=== PATIENT | male | born 1985 | race Caucasian/White ===

== ENCOUNTER 2020-04-19 14:43 | Emergency (ER) | payer SELFPAY ==
--- NOTE | 2020-04-19 15:27 | RAD REPORT ---
EXAM DESCRIPTION: RAD - Ankle Right 3 View - 04/19/2020 3:15 pm CLINICAL HISTORY: PAIN COMPARISON: No comparisons FINDINGS: Lateral soft tissue swelling without distal fibular fracture identified. Ankle mortise is normal. A very small crescent shaped bone density present adjacent to the medial malleolus. A small b one avulsion is possible. This does not traverse the medial malleolus. No joint effusion seen. No tesfaye nt space narrowing. Medial soft tissue swelling present. IMPRESSION: No significant fracture deformity identified. Medial soft tissue swelling present along with a small crescent shaped bone density adjacent to the m edial malleolus. This could be a small 1- 2 mm sized bony avulsion.
--- NOTE | 2020-04-19 15:50 | ER ---
Nurse's Notes [facility] Name: Lemuel Spicer Age: 34 yrs Sex: Male : 1985 Arrival Date: 04/19/2020 Time: 14:46 Bed 2 Private MD: Diagnosis: Sprain of ankle Presentation: 04/19 14:46 Chief complaint: EMS states: ROLLED R ANKLE WAKEBOARDING. Coronavirus screen: At this bp time, the client does not indicate any symptoms associated with coronavirus-19. Ebola Screen: No symptoms or risks identified at this time. Initial Sepsis Screen: Does the patient meet any 2 criteria? No. Patient's initial sepsis screen is negative. Does the patient have a suspected source of infection? No. Patient's initial sepsis screen is negative. Risk Assessment: Do you want to hurt yourself or someone else? Patient reports no desire to harm self or others. Onset of symptoms is unknown. Care prior to arrival: IV initiated. 18 GA, in the left antecubital area. 14:46 Method Of Arrival: EMS: [facility] bp 14:46 Acuity: ROHIT 3 bp Triage Assessment: 14:48 General: Appears in no apparent distress. uncomfortable, Behavior is calm, cooperative, bp appropriate for age. Pain: Complains of pain in right lateral malleolus and right medial malleolus. EENT: No deficits noted. Neuro: No deficits noted. Cardiovascular: No deficits noted. Respiratory: No deficits noted. GI: No signs and/or symptoms were reported involving the gastrointestinal system. : Derm: No deficits noted. Musculoskeletal: Circulation, motion, and sensation intact. Range of motion: limited in right ankle. Historical: - Allergies: 14:48 No Known Allergies; bp - Home Meds: 14:48 None [Active]; bp - PMHx: 14:48 None; bp - Immunization history:: Adult Immunizations up to date. - Social history:: Smoking status: Patient denies any tobacco usage or history of. Screenin:50 Abuse screen: Denies threats or abuse. Denies injuries from another. Nutritional bp screening: No deficits noted. Tuberculosis screening: No symptoms or risk factors identified. Fall Risk Fall in past 12 months (25 points). Assessment: 14:53 General: SEE TRIAGE NOTE. bp 17:24 Reassessment: PT D/C HOME VIA W/C WITH FAMILY, DX WITH ANKLE SPRAIN. bp Vital Signs: 14:46 BP 118 / 73; Pulse 68; Resp 18; Temp 98; Pulse Ox 96% ; bp 17:24 BP 108 / 67; Pulse 57; Resp 17; Temp 98; Pulse Ox 100% ; bp ED Course: 14:46 Patient arrived in ED. bp 14:47 Triage completed. bp 14:48 [facility] jr[facility] 14:48 Miles Cota MD is Attending Physician. jr8 14:48 Arm band placed on. bp 14:50 Patient has correct armband on for positive identification. Bed in low position. Call bp light in reach. Side rails up X2. 14:50 Maintain EMS IV. Dressing intact. Good blood return noted. Site clean \T\ dry. Gauge \T\ bp site: 18 G LEFT AC. 15:49 Gray Conklin MD is Referral Physician. jr8 16:21 Rigoberto Coley, RN is Primary Nurse. bp 17:24 No provider procedures requiring assistance completed. IV discontinued, intact, bp bleeding controlled, No redness/swelling at site. Pressure dressing applied. Administered Medications: 17:10 Drug: [place] 10 mg-325 mg 1 tabs Route: PO; bp 17:24 Follow up: Response: Medication administered at discharge. bp Outcome: 15:49 Discharge ordered by . jr8 17:25 Discharged to home via wheelchair, with crutches, with family. bp 17:25 Condition: stable 17:25 Discharge instructions given to patient, Instructed on discharge instructions, follow up and referral plans. medication usage, crutch walking, Demonstrated understanding of instructions, follow-up care, medications, crutch walking, Prescriptions given X 1. 17:26 Patient left the ED. bp Signatures: Jag Steele PA PA jr8 Rigoberto Coley, RN RN bp
--- NOTE | 2020-04-19 15:50 | EDPHYS ---
Physician Documentation [facility] Name: Lemuel Spicer Age: 34 yrs Sex: Male : 1985 Arrival Date: 04/19/2020 Time: 14:46 Bed 2 Private MD: ED Physician Miles Cota HPI: 04/19 15:44 This 34 yrs old Male presents to ER via EMS with complaints of Ankle Injury. jr8 15:47 The patient presents with decreased range of motion, pain, swelling, tenderness. The jr8 complaints affect the right ankle. Onset: The symptoms/episode began/occurred acutely, today. Associated signs and symptoms: The patient has no apparent associated signs or symptoms. Modifying factors: The symptoms are alleviated by nothing, the symptoms are aggravated by weight bearing, movement. Severity of symptoms: At their worst the symptoms were moderate, in the emergency department the symptoms are unchanged. The patient has experienced similar episodes in the past, a few times. The patient has not recently seen a physician. Patient stated that he was wake boarding and fell twisting ankle. Swelling with pain since incident . Historical: - Allergies: 14:48 No Known Allergies; bp - Home Meds: 14:48 None [Active]; bp - PMHx: 14:48 None; bp - Immunization history:: Adult Immunizations up to date. - Social history:: Smoking status: Patient denies any tobacco usage or history of. ROS: 15:47 Eyes: Negative for injury, pain, redness, and discharge, ENT: Negative for injury, jr8 pain, and discharge, Neck: Negative for injury, pain, and swelling, Cardiovascular: Negative for chest pain, palpitations, and edema, Respiratory: Negative for shortness of breath, cough, wheezing, and pleuritic chest pain, Abdomen/GI: Negative for abdominal pain, nausea, vomiting, diarrhea, and constipation, Back: Negative for injury and pain, Skin: Negative for injury, rash, and discoloration, Neuro: Negative for headache, weakness, numbness, tingling, and seizure. 15:47 MS/extremity: Positive for decreased range of motion, pain, swelling, tenderness, of the right ankle. Exam: 15:47 Constitutional: This is a well developed, well nourished patient who is awake, alert, jr8 and in no acute distress. Cardiovascular: Regular rate and rhythm with a normal S1 and S2. No gallops, murmurs, or rubs. Normal PMI, no JVD. No pulse deficits. Respiratory: Lungs have equal breath sounds bilaterally, clear to auscultation and percussion. No rales, rhonchi or wheezes noted. No increased work of breathing, no retractions or nasal flaring. Skin: Warm, dry with normal turgor. Normal color with no rashes, no lesions, and no evidence of cellulitis. Neuro: Awake and alert, GCS 15, oriented to person, place, time, and situation. Cranial nerves II-XII grossly intact. Motor strength 5/5 in all extremities. Sensory grossly intact. Cerebellar exam normal. Normal gait. 15:47 Musculoskeletal/extremity: Extremities: grossly normal except: noted in the right ankle and right foot: Patient has two small abrasions to dorsal foot. Moderate swelling present to lateral malleolus with mild bruising. No other trauma noted , ROM: intact in all extremities, full active range of motion, full passive range of motion, limited active range of motion due to pain, limited passive range of motion due to pain, Circulation is intact in all extremities. Sensation intact. Vital Signs: 14:46 BP 118 / 73; Pulse 68; Resp 18; Temp 98; Pulse Ox 96% ; bp 17:24 BP 108 / 67; Pulse 57; Resp 17; Temp 98; Pulse Ox 100% ; bp Procedures: 15:47 Splinting: Splint applied to right ankle using Air Cast, applied by nurse. Examined by jr8 dc, post splint application: neurovascular intact, 2+ distal pulses palpable, brisk capillary refill noted. Crutch training provided to patient and/or family. Return demonstration given. MDM: 14:51 Patient medically screened. jr8 15:47 Data reviewed: vital signs, nurses notes, radiologic studies, plain films, and as a jr8 result, I will discharge patient. Data interpreted: Pulse oximetry: on room air is 96 %. Interpretation: normal. Counseling: I had a detailed discussion with the patient and/or guardian regarding: the historical points, exam findings, and any diagnostic results supporting the discharge/admit diagnosis, radiology results, the need for outpatient follow up, a orthopedic surgeon, to return to the emergency department if symptoms worsen or persist or if there are any questions or concerns that arise at home. 04/19 14:51 Order name: XRAY Ankle RIGHT 3 view jr8 04/19 15:28 Order name: RAD; Complete Time: 15:43 EDKY 04/19 15:44 Order name: Aircast Ankle Splint; Complete Time: 17:06 jr8 04/19 15:44 Order name: Crutches; Complete Time: 17:06 jr8 Administered Medications: 17:10 Drug: [place] 10 mg-325 mg 1 tabs Route: PO; bp 17:24 Follow up: Response: Medication administered at discharge. bp Disposition: 17:36 Co-signature as Attending Physician, Miles Cota MD. rn Disposition: 04/19/20 15:49 Discharged to Home. Impression: Sprain of ankle. - Condition is Stable. - Discharge Instructions: Ankle Sprain. - Prescriptions for Ibuprofen 800 mg Oral Tablet - take 1 tablet by ORAL route every 12 hours As needed take with food; 20 tablet. - Medication Reconciliation Form, Thank You Letter, Antibiotic Education, Prescription Opioid Use form. - Follow up: Gray Conklin MD; When: 7 - 10 days; Reason: Recheck today's complaints, Continuance of care, Re-evaluation by your physician. - Problem is new. - Symptoms have improved. Signatures: Dispatcher [employer] EDKY Miles Cota MD MD rn Roszak, Josh, PA PA jr8 Rigoberto Coley RN RN bp Corrections: (The following items were deleted from the chart) 17:26 15:49 04/19/2020 15:49 Discharged to Home. Impression: Sprain of ankle. Condition is bp Stable. Forms are Medication Reconciliation Form, Thank You Letter, Antibiotic Education, Prescription Opioid Use. Follow up: Gray Conklin; When: 7 - 10 days; Reason: Recheck today's complaints, Continuance of care, Re-evaluation by your physician. Problem is new. Symptoms have improved. jr8
[2020-04-19] MEDS ORDERED: HYDROCODONE/APAP 10/325 TAB ONE (17:19)
[2020-04-19 17:31] VITALS: TEMP 98
[2020-04-19 17:35] VITALS: BP 108/67; O2SAT 100
== END 2020-04-19 17:26 | disposition home or self-care (01) ==
LOC: ER 14:43
DX: S93.401A Sprain of unspecified ligament of right ankle, initial encounter (principal); W19.XXXA Unspecified fall, initial encounter; Y93.17 Activity, water skiing and wake boarding; Y92.9 Unspecified place or not applicable
CPT/HCPCS: 99284